=== PATIENT | female | born 1980 | race Caucasian/White ===

== ENCOUNTER 2017-01-24 01:57 | Emergency (ER) | payer OTHER ==
--- NOTE | ~2017-01-24 | CT4 ---
[facility] A Service of [facility] & [facility] RADIOLOGY TEXT RESULTS PATIENT: ABHAY GRADY LOCATION: SED : 78 UNIT #: [id number] AGE: [address]: Francisco Wilcox MD SEX: F ORDER DR: [id number] [address] [address] [id number] E MR#: [id number] Acc #: [id number] NAME: ABHAY GRADY. : 1980 SEX: F STUDY DATE/TIME: 01/24/2017 2:29 UNIT: SED ROOM: STUDY DESCRIPTION: CT Abd and Pelv Wo Cont Attending Physician: Francisco Wilcox M.D. Ordering Physician: Francisco Wilcox M.D. Primary Care Physician: Deandra Reynolds M.D. MEDICAL IMAGING REPORT This report is preliminary unless electronic signature is present. EXAM Abdomen and pelvis CT without contrast, 01/24/2017 INDICATION Flank pain and right lower quadrant plan on the right for 30 minutes prior to arrival tonight. History of kidney stones. TECHNIQUE Noncontrast abdomen and pelvis CT was performed compared with 11/06/2015. This CT exam was performed with one or more of the following radiation dose reduction techniques: automatic exposure control, adjustment of mA and/or kV according to patient size, and iterative reconstruction. FINDINGS CT ABDOMEN: Exam markedly degraded by noncontrast technique. Included lung bases clear. No pleural or pericardial effusion. Aorta unremarkable. Spleen and adrenal glands are normal. Pancreas unremarkable. Gallbladder surgically absent. Liver unremarkable. Kidneys demonstrate no hydronephrosis on either side. Probable faint nonobstructing stones in the right kidney. Ureters unremarkable. CT PELVIS: Bladder unremarkable. No drainable fluid collection in the pelvis. Bowel and appendix unremarkable. There is a probable physiologic cyst associated with the right ovary measuring up to 4.6 cm . It is however, unchanged from the prior CT performed 11/06/2015. There is a new cyst associated with the right ovary measuring up to 3.6 cm. There is some stranding about the right ovary and this could represent a proteinaceous or hemorrhagic cyst. There does appear to be some proteinaceous fluid associated with the lateral margin STS. [facility] A Service of [facility] & [facility] RADIOLOGY TEXT RESULTS PATIENT: ABHAY GRADY LOCATION: [facility] [place] : [birth year] UNIT #: [id number] AGE: [address]: Francisco Wilcox MD SEX: F ORDER DR: of the cyst. This probably accounts for the patient's pain symptoms and could be further assessed with ultrasound if clinically desired or warranted. Inguinal canals are unremarkable. There is no evidence of free air. No suspicious bone lesion. IMPRESSION 1. There is a new cyst associated with the right ovary measuring 3.6 cm. This may represent a proteinaceous or hemorrhagic cyst and probably accounts for the patient's pain symptoms. There is some stranding associated with the right ovary which is nonspecific. 2. Stable cyst associated with the right ovary compared to a prior 2016 study measuring 4.6 cm. 3. Examination is otherwise negative. Incidental findings include the followin. Normal appendix. 2. Status post cholecystectomy. 3. Equivocal tiny nonobstructing stones in the right kidney. Dictated by... Jhon Tripp M.D. THIS IS AN ELECTRONICALLY VERIFIED REPORT John Tripp M.D. at 01/24/2017 6:24 AM Sher TD: 01/24/2017 05:41 JOB #: [id number] MEDICAL IMAGING REPORT Page 1 of 1
[~2017-01-24 01:57] MED LIST: ABILIFY2 MG PO; ADDERALL PO; AZOR 10/20 MG T1 TAB PO; CIPRO PO; EFFEXOR PO; EFFEXOR XR PO; FAMOTIDINE PO; FLOMAX0.4 M1 PO; FLOMAX0.4 MG PO; KLONOPIN; NAPROSYN500 MG PO; NORVASC PO; PERCOCET PO; PERCOCET5/325 PO; PHENERGAN PO; PHENERGAN25 MG PO; PHENTERMINE PO; PRISTIQ100 MG PO; TOPROL XL PO; TYLENOL #3 PO; TYLOX 5/500 CAP1 CAP PO; ULTRAM PO; VYVANSE60 MG PO; VYVANSE70 MG PO; ZOFRAN PO
[2017-01-24 02:12] LABS: BASOPHIL# 0.1 X10e3 (0-0.3); EOSINOPHIL# 0.4 X10e3 (0-0.7); HEMATOCRIT 41.5 % (35.0-45.0); HEMOGLOBIN 14.1 gm/dL (12.0-16.0); LYMPHOCYTE# 3.1 X10e3 (1.0-3.5); LYMPHOCYTE% 32.5 % (17.0-45.0); MEAN CELL VOLUME 89.6 FL (83-96); MEAN CORPUSCULAR HEMOGLOBIN 30.5 PG (28-34); MEAN PLATELET VOLUME 8.7 FL (6.5-11.5); MONOCYTE# 0.8 X10e3 (0-1.0); MONOCYTE% 8.1 % (3.0-12.0); NEUTROPHIL# 5.2 X10e3 (1.5-7.1); NEUTROPHIL% 54.4 % (40-75); PLATELET COUNT 213 X10e3 (140-420); RED BLOOD COUNT 4.63 X10e (3.90-5.30); RED CELL DISTRIBUTION WIDTH 13.4 % (11.0-15.5); WHITE BLOOD COUNT 9.5 X10e3 (4.0-10.5)
[2017-01-24 02:14] LABS: DIFF IND NO
[2017-01-24 02:14] LABS: URINE SOURCE CLEAN CATCH
[2017-01-24 02:17] LABS: URINE APPEARANCE CLEAR; URINE BILIRUBIN NEG (NEG); URINE BLOOD NEG (NEG); URINE COLOR YELLOW; URINE GLUCOSE NEG (NORM); URINE KETONE NEG (NEG); URINE LEUKOCYTE ESTERASE NEG (NEG); URINE NITRATE NEG (NEG); URINE PH 6.5 (5-8); URINE PROTEIN NEG (NEG); URINE UROBILINOGEN 0.2 MG/DL (NORM)
[2017-01-24 02:19] LABS: MICRO INDICATED? NO
[2017-01-24 02:28] LABS: ALBUMIN SERUM 3.6 g/dL (3.5-5.0); BILIRUBIN, DIRECT 0.1 mg/dL (0.0-0.2); BILIRUBIN,INDIRECT 0.3 mg/dL (0.0-0.9); BILIRUBIN,TOTAL 0.4 mg/dL (0.2-2.0); BUN/CREATININE RATIO 18.33; CALCIUM SERUM 9.1 mg/dL (8.4-10.2); CREATININE SERUM 0.6 mg/dL (0.6-1.4); GLOM FILT RATE Estimated 116.4 mL/min (>60); POTASSIUM 3.8 mmol/L (3.5-5.1); PROTEIN TOTAL SERUM 6.4 g/dL (6.0-8.3)
== END 2017-01-24 03:24 | disposition home or self-care (01) ==
LOC: SED 01:57
PROVIDERS: Emergency Medicine
DX: N83.209 Unspecified ovarian cyst, unspecified side (principal); Z90.49 Acquired absence of other specified parts of digestive tract; F17.200 Nicotine dependence, unspecified, uncomplicated
CPT/HCPCS: 36415; 74176; 80048; 80076; 81003; 84703; 85025; 96361; 96374; 99284; J1885